=== PATIENT | female | born 1980 | race Caucasian/White ===

== ENCOUNTER 2017-02-17 10:16 | Emergency (ER) | payer MEDICAID ==
[~2017-02-17] VITALS: Ht 165.1 cm; Wt 104.5 kg
[~2017-02-17 10:16] MED LIST: ALBU18HF2 IH; DIAZ5TAB PO; HYDR-569 PO; NABU500T2 PO; PHEN-873 PO; PROM25TA14 PO
[2017-02-17 13:02] VITALS: BP 159/94
[2017-02-17] MEDS ORDERED: predniSONE 20 mg tablet PO ONE (13:15)
[2017-02-17] MEDS ORDERED: ipratropium/albuterol 3ml nebule NEB ONE (13:15)
[2017-02-17] MEDS ORDERED: benzonatate 100mg capsule PO ONE (13:15)
[2017-02-17] MEDS ORDERED: azithromycin 250mg tablet PO ONE (13:45)
[2017-02-17] MEDS ORDERED: AZI25OT PO (13:46)
[2017-02-17] MEDS ORDERED: BENZ-16 PO (13:46)
[2017-02-17] MEDS ORDERED: PRED20TA PO (13:46)
[2017-03-17] MEDS ORDERED: IBUP-1984 PO (13:28)
[2017-03-17] MEDS ORDERED: ONDA4TAB9 PO (13:28)
[2017-03-17] MEDS ORDERED: OXYC-150 PO (13:28)
== END 2017-02-17 14:00 | disposition home or self-care (01) ==
LOC: ER 10:17
DX: J18.9 Pneumonia, unspecified organism (principal); J98.01 Acute bronchospasm; G89.29 Other chronic pain; F17.200 Nicotine dependence, unspecified, uncomplicated; Z88.5 Allergy status to narcotic agent
CPT/HCPCS: 71020; 94640; 99284; J7512

== ENCOUNTER 2017-07-01 16:54 | Emergency (ER) | payer MEDICAID ==
[~2017-07-01] VITALS: Ht 165.1 cm; Wt 103.0 kg
[~2017-07-01 16:54] MED LIST changes: +OXYC-150 PO
[2017-07-01 17:24] LABS: URINE HCG NEGATIVE (NEG)
[2017-07-01 17:25] LABS: CLARITY,URINE CLOUDY (Clear); COLOR,URINE YELLOW (Yellow); GLUCOSE, URINE NEGATIVE (Neg); KETONES,URINE TRACE mg/dl (Neg); LEUKOCYTE ESTERASE ,URINE MODERATE (Neg); NITRITES, URINE NEGATIVE (Neg); OCCULT BLOOD,URINE NEGATIVE (Neg); PH,URINE 5.5 (4.8-8.0); PROTEIN,URINE NEGATIVE (Neg); UROBILINOGEN,URINE 0.2 E.U/dL (0.2-1.0)
[2017-07-01 17:32] LABS: UA COLLECTION TYPE CLN CATCH MIDSTREAM
[2017-07-01 17:34] LABS: BACTERIA,URINE FEW /HPF (Neg); SQUAMOUS EPITHELIAL CELL,UR MANY /LPF (FEW); WBC,URINE 50-100 /HPF (0-4)
[2017-07-01 17:35] LABS: BASOPHILS % (AUTO) 0.4 % (0-1); EOSINOPHILS # (AUTO) 0.2 X10'3 (0-0.9); EOSINOPHILS % (AUTO) 2.3 % (0-6); HEMATOCRIT 41.3 % (35.0-45.0); LYMPHOCYTES # (AUTO) 2.7 X10'3 (1.1-4.8); LYMPHOCYTES % (AUTO) 25.2 % (21-51); MEAN CORPUSCULAR HEMOGLOBIN 30.9 PG (27.0-31.0); MEAN CORPUSCULAR HGB CONC 33.9 % (33.0-36.5); MEAN CORPUSCULAR VOLUME 91.1 FL (78-98); MEAN PLATELET VOLUME 9.6 FL (7.4-10.4); MONOCYTES # (AUTO) 0.6 X10'3 (0-0.9); MONOCYTES % (AUTO) 5.5 % (2-12); NEUTROPHILS # (AUTO) 7.1 X10'3 (1.8-7.7); NEUTROPHILS % (AUTO) 66.6 % (42-75); PLATELET COUNT 173 X10'3 (140-440); RED BLOOD COUNT 4.54 X10'6 (4.20-5.60); RED CELL DISTRIBUTION WIDTH 12.9 % (11.5-14.5); WHITE BLOOD COUNT 10.6 X10'3 (4.5-11.0)
[2017-07-01 17:43] LABS: PROTHROMBIN TIME 10.4 SECONDS (9.0-12.0)
[2017-07-01 17:49] LABS: ALANINE AMINOTRANSFERASE 26 U/L (12-78); ALBUMIN 3.8 G/DL (3.4-5.0); ALKALINE PHOSPHATASE 66 IU/L (46-116); ANION GAP 10 (8-16); ASPARTATE AMINO TRANSFERASE 13 U/L (10-37); BILIRUBIN,TOTAL 0.2 MG/DL (0.1-1.0); BLOOD UREA NITROGEN 19 MG/DL (7-18); BUN/CREATININE RATIO 19.8 (6.6-38.0); CALCIUM 8.7 MG/DL (8.5-10.1); CHLORIDE 107 MMOL/L (99-107); CREATININE 0.96 MG/DL (0.40-0.90); GLUCOSE 107 MG/DL (70-104); POTASSIUM 4.1 MMOL/L (3.5-5.1); SODIUM 142 MMOL/L (135-145); TOTAL CARBON DIOXIDE 25.2 MMOL/L (24-32); TOTAL PROTEIN 7.5 G/DL (6.4-8.2); eGFR 66 ML/MIN
[2017-07-01 18:29] VITALS: BP 139/79
[2017-07-01] MEDS ORDERED: acetaminophen 325mg tablet PO ONE (18:40)
[2017-07-01] MEDS ORDERED: ciprofloxacin 250mg tablet PO ONE (18:40)
[2017-07-01] MEDS ORDERED: phenazopyridine 100mg tablet PO ONE (18:40)
[2017-07-01] MEDS ORDERED: CIPR-230 PO (18:44)
[2017-07-01] MEDS ORDERED: PHEN-716 PO (18:45)
[2017-07-02] MEDS ORDERED: ONDA4TAB9 PO (12:48)
[2017-07-02] MEDS ORDERED: HYDR-565 PO (12:48)
== END 2017-07-01 19:00 | disposition home or self-care (01) ==
LOC: ER 16:54
DX: N39.0 Urinary tract infection, site not specified (principal); G43.909 Migraine, unspecified, not intractable, without status migrainosus; J45.909 Unspecified asthma, uncomplicated; G89.29 Other chronic pain; Z88.5 Allergy status to narcotic agent; Z79.899 Other long term (current) drug therapy
CPT/HCPCS: 36415; 80053; 81001; 81025; 85025; 85610; 87088; 99284

== ENCOUNTER 2017-07-02 09:19 | Emergency (ER) | payer MEDICAID ==
[~2017-07-02] VITALS: Ht 165.1 cm; Wt 100.0 kg
[~2017-07-02 09:19] MED LIST changes: +CIPR-230 PO; +PHEN-716 PO
[2017-07-02 10:31] LABS: BASOPHILS # (AUTO) 0.1 X10'3 (0-0.2); BASOPHILS % (AUTO) 0.6 % (0-1); EOSINOPHILS # (AUTO) 0.1 X10'3 (0-0.9); EOSINOPHILS % (AUTO) 1.4 % (0-6); HEMATOCRIT 43.5 % (35.0-45.0); HEMOGLOBIN 15.1 g/dl (12.0-16.0); LYMPHOCYTES # (AUTO) 1.8 X10'3 (1.1-4.8); LYMPHOCYTES % (AUTO) 21.9 % (21-51); MEAN CORPUSCULAR HEMOGLOBIN 30.9 PG (27.0-31.0); MEAN CORPUSCULAR HGB CONC 34.7 % (33.0-36.5); MEAN PLATELET VOLUME 9.4 FL (7.4-10.4); MONOCYTES # (AUTO) 0.3 X10'3 (0-0.9); MONOCYTES % (AUTO) 3.4 % (2-12); NEUTROPHILS % (AUTO) 72.7 % (42-75); PLATELET COUNT 173 X10'3 (140-440); RED BLOOD COUNT 4.89 X10'6 (4.20-5.60); RED CELL DISTRIBUTION WIDTH 12.9 % (11.5-14.5); WHITE BLOOD COUNT 8.3 X10'3 (4.5-11.0)
[2017-07-02 10:42] LABS: ALANINE AMINOTRANSFERASE 25 U/L (12-78); ALKALINE PHOSPHATASE 58 IU/L (46-116); ANION GAP 9 (8-16); ASPARTATE AMINO TRANSFERASE 14 U/L (10-37); BILIRUBIN,TOTAL 0.5 MG/DL (0.1-1.0); BLOOD UREA NITROGEN 10 MG/DL (7-18); BUN/CREATININE RATIO 12.8 (6.6-38.0); CALCIUM 9.1 MG/DL (8.5-10.1); CHLORIDE 107 MMOL/L (99-107); CREATININE 0.78 MG/DL (0.40-0.90); GLUCOSE 120 MG/DL (70-104); LIPASE 78 U/L (73-393); SODIUM 142 MMOL/L (135-145); TOTAL CARBON DIOXIDE 25.9 MMOL/L (24-32); TOTAL PROTEIN 7.9 G/DL (6.4-8.2); eGFR 84 ML/MIN
[2017-07-02] MEDS ORDERED: ketorolac tromethamine 15mg/ml inj. IM ONE (11:50)
[2017-07-02] MEDS ORDERED: HYDR-565 PO (12:48)
[2017-07-02] MEDS ORDERED: ONDA4TAB9 PO (12:48)
[2017-07-02 12:52] VITALS: BP 155/88
== END 2017-07-02 12:53 | disposition home or self-care (01) ==
LOC: ER 09:19
DX: G89.29 Other chronic pain (principal); R10.9 Unspecified abdominal pain; N80.9 Endometriosis, unspecified; N83.202 Unspecified ovarian cyst, left side; J45.909 Unspecified asthma, uncomplicated; G43.909 Migraine, unspecified, not intractable, without status migrainosus
CPT/HCPCS: 36415; 80053; 83690; 85025; 96372; 99284; J1885

== ENCOUNTER 2018-01-06 18:13 | Emergency (ER) | payer MEDICAID ==
[~2018-01-06] VITALS: Ht 152.4 cm; Wt 109.0 kg
[~2018-01-06 18:13] MED LIST changes: -CIPR-230 PO; +HYDR-4383 PO; -HYDR-569 PO; +PHEN-786 PO; -PHEN-873 PO
[2018-01-06 18:31] VITALS: BP 130/94
[2018-01-06] MEDS ORDERED: CYCL-1 PO (18:56)
== END 2018-01-06 19:42 | disposition home or self-care (01) ==
LOC: ER 18:14
DX: M54.2 Cervicalgia (principal); M54.5 Low back pain; G43.909 Migraine, unspecified, not intractable, without status migrainosus; J45.909 Unspecified asthma, uncomplicated; G89.29 Other chronic pain; Z88.5 Allergy status to narcotic agent; V89.2XXA Person injured in unspecified motor-vehicle accident, traffic, initial encounter; Y93.89 Activity, other specified; Y92.488 Other paved roadways as the place of occurrence of the external cause; Y99.8 Other external cause status
CPT/HCPCS: 99283

== ENCOUNTER 2018-06-30 11:07 | Emergency (ER) | payer MEDICAID ==
[~2018-06-30] VITALS: Ht 165.1 cm; Wt 111.6 kg
[~2018-06-30 11:07] MED LIST changes: +CYCL-1 PO
[2018-06-30 11:50] LABS: BASOPHILS % (AUTO) 0.6 % (0-1); EOSINOPHILS # (AUTO) 0.2 X10'3 (0-0.9); EOSINOPHILS % (AUTO) 3.3 % (0-6); HEMATOCRIT 35.6 % (35.0-45.0); HEMOGLOBIN 11.9 g/dl (12.0-16.0); LYMPHOCYTES # (AUTO) 1.7 X10'3 (1.1-4.8); LYMPHOCYTES % (AUTO) 25.7 % (21-51); MEAN CORPUSCULAR HEMOGLOBIN 28.9 PG (27.0-31.0); MEAN CORPUSCULAR HGB CONC 33.6 g/dL (33.0-36.5); MEAN PLATELET VOLUME 8.9 FL (7.4-10.4); MONOCYTES # (AUTO) 0.4 X10'3 (0-0.9); MONOCYTES % (AUTO) 5.2 % (2-12); NEUTROPHILS # (AUTO) 4.4 X10'3 (1.8-7.7); NEUTROPHILS % (AUTO) 65.2 % (42-75); PLATELET COUNT 168 X10'3 (140-440); RED BLOOD COUNT 4.14 X10'6 (4.20-5.60); RED CELL DISTRIBUTION WIDTH 13.1 % (11.5-14.5); WHITE BLOOD COUNT 6.8 X10'3 (4.5-11.0)
[2018-06-30 12:02] LABS: ALANINE AMINOTRANSFERASE 11 U/L (12-78); ALBUMIN/GLOBULIN RATIO 0.9 (1.1-1.5); ALKALINE PHOSPHATASE 65 IU/L (46-116); ANION GAP 6 (8-16); ASPARTATE AMINO TRANSFERASE 13 U/L (10-37); BILIRUBIN,TOTAL 0.3 MG/DL (0.1-1.0); BLOOD UREA NITROGEN 9 MG/DL (7-18); BUN/CREATININE RATIO 11.3 (6.6-38.0); CALCIUM 9.2 MG/DL (8.5-10.1); CHLORIDE 107 MMOL/L (99-107); GLUCOSE 98 MG/DL (70-104); SODIUM 139 MMOL/L (135-145); TOTAL CARBON DIOXIDE 26.4 MMOL/L (24-32); TOTAL PROTEIN 6.5 G/DL (6.4-8.2); eGFR 81 ML/MIN
[2018-06-30 12:09] LABS: BETA HCG,QUANTITATIVE 451 mIU/ml; LIPASE 54 U/L (73-393)
[2018-06-30 13:22] LABS: CLARITY,URINE CLOUDY (Clear); COLOR,URINE STRAW (Yellow); GLUCOSE, URINE NEGATIVE (Neg); KETONES,URINE NEGATIVE (Neg); LEUKOCYTE ESTERASE ,URINE LARGE (Neg); NITRITES, URINE NEGATIVE (Neg); OCCULT BLOOD,URINE LARGE (Neg); PH,URINE 6.5 (4.8-8.0); PROTEIN,URINE TRACE mg/dl (Neg); UA COLLECTION TYPE NON-SPECIFIED; URINE HCG POSITIVE (NEG); UROBILINOGEN,URINE 0.2 E.U/dL (0.2-1.0)
[2018-06-30 13:27] LABS: MUCUS STRANDS FEW /LPF (Neg); SQUAMOUS EPITHELIAL CELL,UR MANY /LPF (FEW)
[2018-06-30 13:29] LABS: BACTERIA,URINE FEW /HPF (Neg); RBC,URINE TNTC /HPF (0-2); WBC,URINE 30-50 /HPF (0-4)
[2018-06-30] MEDS ORDERED: ondansetron/PF 4mg/2ml inj IV ONE (13:45)
[2018-06-30] MEDS ORDERED: morphine 4 MG/ML inj SYRINge IV ONE ×2 (13:45)
[2018-06-30] MEDS ORDERED: HYDR-4353 PO (14:25)
[2018-06-30 15:24] VITALS: BP 129/69
== END 2018-06-30 15:27 | disposition home or self-care (01) ==
LOC: ER 11:09
DX: O20.0 Threatened abortion (principal); O99.351 Diseases of the nervous system complicating pregnancy, first trimester; G43.909 Migraine, unspecified, not intractable, without status migrainosus; O99.511 Diseases of the respiratory system complicating pregnancy, first trimester; J45.909 Unspecified asthma, uncomplicated; G89.29 Other chronic pain; Z3A.00 Weeks of gestation of pregnancy not specified; Z88.5 Allergy status to narcotic agent; Z79.899 Other long term (current) drug therapy
CPT/HCPCS: 36415; 76817; 80053; 81001; 81025; 83690; 84702; 85025; 86900; 86901; 96374; 96375; 99284; J2270; J2405

== ENCOUNTER 2019-04-17 14:44 | Emergency (ER) | payer MEDICAID ==
[~2019-04-17] VITALS: Ht 165.1 cm; Wt 100.0 kg
[2019-04-17] MEDS ORDERED: ketorolac trometh inj. 60 MG/2 ML VIAL IM ONE (15:50)
[2019-04-17] MEDS ORDERED: orphenadrine citrate 60mg/2ml inj. IM ONE (15:50)
[2019-04-17] MEDS ORDERED: HYDROcodone/acetaminophen 10/325mg tab PO ONE (15:50)
[2019-04-17] MEDS ORDERED: IBUP-1986 PO (16:55)
[2019-04-17] MEDS ORDERED: ORPH100T2 PO (16:55)
[2019-04-17] MEDS ORDERED: HYDR-4353 PO (16:55)
[2019-04-17 17:21] VITALS: BP 112/55
== END 2019-04-17 17:28 | disposition home or self-care (01) ==
LOC: ER 14:44
DX: S80.01XA Contusion of right knee, initial encounter (principal); S70.01XA Contusion of right hip, initial encounter; S40.021A Contusion of right upper arm, initial encounter; S20.211A Contusion of right front wall of thorax, initial encounter; G43.909 Migraine, unspecified, not intractable, without status migrainosus; J45.909 Unspecified asthma, uncomplicated; G89.29 Other chronic pain; Z88.5 Allergy status to narcotic agent; Z79.899 Other long term (current) drug therapy; V69.59XA Passenger in heavy transport vehicle injured in collision with other motor vehicles in traffic accident, initial encounter; Y93.89 Activity, other specified; Y92.89 Other specified places as the place of occurrence of the external cause; Y99.8 Other external cause status
CPT/HCPCS: 71045; 73564; 96372; 99283; J1885; J2360

== ENCOUNTER 2020-08-15 12:35 | Emergency (ER) | payer MEDICAID ==
[~2020-08-15] VITALS: Ht 165.1 cm; Wt 103.5 kg
[~2020-08-15 12:35] MED LIST changes: +IBUP-1986 PO; +NABU-139 PO; -NABU500T2 PO; +ORPH100T2 PO
[2020-08-15 12:45] VITALS: BP 170/90
[2020-08-15] MEDS ORDERED: ipratropium/albuterol 3ml nebule NEB ONE (12:55)
[2020-08-15] MEDS ORDERED: BECL7.3A INH (13:35)
[2020-08-15] MEDS ORDERED: ALBU18HF2 INH (13:35)
[2020-08-15] MEDS ORDERED: diazepam 5mg tablet PO ONE (13:50)
== END 2020-08-15 14:07 | disposition home or self-care (01) ==
LOC: ER 12:36
DX: J45.901 Unspecified asthma with (acute) exacerbation (principal); G43.909 Migraine, unspecified, not intractable, without status migrainosus; G89.29 Other chronic pain; M54.9 Dorsalgia, unspecified; Z88.5 Allergy status to narcotic agent; Z79.899 Other long term (current) drug therapy
CPT/HCPCS: 71045; 93005; 94640; 94760; 99283

== ENCOUNTER 2020-10-16 14:30 | Emergency (ER) | payer MEDICAID ==
[~2020-10-16] VITALS: Ht 165.1 cm; Wt 92.3 kg
[~2020-10-16 14:30] MED LIST changes: +ALBU18HF2 INH; +BECL7.3A INH
[2020-10-16 14:51] VITALS: BP 129/84
== END 2020-10-16 16:24 | disposition home or self-care (01) ==
LOC: ER 14:30
DX: M25.531 Pain in right wrist (principal); G43.909 Migraine, unspecified, not intractable, without status migrainosus; J45.909 Unspecified asthma, uncomplicated; G89.29 Other chronic pain; Z87.01 Personal history of pneumonia (recurrent); Z88.5 Allergy status to narcotic agent; W22.01XA Walked into wall, initial encounter; Y93.89 Activity, other specified; Y92.89 Other specified places as the place of occurrence of the external cause; Y99.9 Unspecified external cause status
CPT/HCPCS: 73130; 99283